=== PATIENT | male | born 1965 | race Two or more races ===

== ENCOUNTER 2018-12-15 13:26 | Emergency (ER) | payer OTHER ==
[2018-12-15 13:40] VITALS: BP 142/91; PULSE 81; TEMP 97.8; BMI 30.7
--- NOTE | 2018-12-15 14:03 | PDOC ---
History of Present Illness - General Chief Complaint: Injury Stated Complaint: RT. ANKLE PAIN Time Seen by Provider: 12/15/18 13:42 - History of Present Illness Initial Comments: 12/15/18 13:58 53-year-old male with a past medical history significant for gout presents for evaluation of right ankle pain 6 days. He states he had a gouty exacerbation that has resolved however coming down the steps 2 days ago he felt he stepped awkwardly and now has ankle pain. He points to the medial aspect of his right ankle as the area of his discomfort. Past History - Past Medical History Home Medications: Ambulatory Orders NK [No Known Home Medication] 12/15/18 CVA: No COPD: No CHF: No - Immunization History Immunization Up to Date: Yes - Suicide/Smoking/Psychosocial Hx Smoking History: Never smoked Hx Alcohol Use: No Drug/Substance Use Hx: No Review of Systems - Review of Systems Musculoskeletal: Yes: Joint Pain *Physical Exam - Vital Signs Last Vital Signs Temp Pulse Resp BP Pulse Ox 97.8 F 81 16 142/91 96 12/15/18 13:37 12/15/18 13:37 12/15/18 13:37 12/15/18 13:37 12/15/18 13:37 - Physical Exam Comments: 12/15/18 14:04 Right ankle skin color and temperature are normal. There swelling about the medial lateral aspect of the right ankle. No tenderness about the knee proximal fibula or along its distal coarse. Tenderness about the medial malleolus. No tenderness about the lateral malleolus ATFL or base of the fifth metatarsal and navicular. Thigh and calf are soft and nontender. He has no gross sensorimotor deficits. Is neurovascularly intact. ED Treatment Course - RADIOLOGY Radiology Studies Ordered: Category Date Time Status ANKLE-RIGHT [RAD] Stat Radiology 12/15/18 13:51 Ordered Medical Decision Making - Medical Decision Making 12/15/18 14:21 Mild arthritic changes on radiograph. No evidence of acute fracture or destructive process. Weight-bear as tolerated with Aircast and crutches follow- up with orthopedic surgery. *DC/Admit/Observation/Transfer Diagnosis at time of Disposition: Ankle pain, right - Discharge Dispostion Disposition: HOME Condition at time of disposition: Stable Decision to Admit order: No - Referrals Referrals: Gil Livingston DO [Staff Physician] - - Patient Instructions Additional Instructions: X-rays were negative today. Tylenol and Motrin as directed for pain. Return to the emergency room for worsening symptoms. Follow-up with orthopedic surgery in 1-2 days for further evaluation and treatment options. He may weight-bear as tolerated with the Aircast and crutches. - Post Discharge Activity
== END 2018-12-15 14:45 | disposition home or self-care (01) ==
LOC: JERFT 13:26
PROC: 2W3QX1Z Immobilization of Right Lower Leg using Splint (ICD-10-PCS; principal; 2018-12-15)
DX: M25.571 Pain in right ankle and joints of right foot (principal); X50.1XXA Overexertion from prolonged static or awkward postures, initial encounter; Y93.89 Activity, other specified; Y92.89 Other specified places as the place of occurrence of the external cause; Y99.8 Other external cause status
CPT/HCPCS: 73610-TC-RT-FY; 99281-25

== ENCOUNTER 2019-01-31 23:56 | Emergency (ER) | payer OTHER | END 2019-02-01 01:58 | disposition home or self-care (01) | LOC: JER 23:56 ==